=== PATIENT | female | born 1985 | race Hispanic/Latino ===

== ENCOUNTER 2017-09-10 14:21 | Emergency (ER) | payer OTHER ==
[2017-09-10 14:43] VITALS: TEMP 98.1; O2SAT 100
--- NOTE | 2017-09-10 15:12 | ED PDOC ---
HPI: Chest Pain Time Seen by Provider: 09/10/17 15:10 Chief Complaint (Nursing): Chest Pain Chief Complaint (Provider): CP History Per: Patient (32 Y/O FEMALE HERE WITH CHEST PAIN NOTED [employer] WITH BURNING SENSATION IN LEFT SHOULDER TODAY. DERIK HAS H/O ANXIETY BUT HAS BEEN WITHOUT MEDICATIONS X 3 YEARS. HAS TAKEN XANAX LAST SUNDAY WITH IMPROVEMENT OF SYMPTOMS.) Past Medical History Reviewed: Historical Data, Nursing Documentation, Vital Signs Vital Signs: Last Vital Signs Temp 98.1 F 09/10/17 14:39 Pulse 89 09/10/17 14:39 Resp 20 09/10/17 14:39 BP 142/85 09/10/17 14:39 Pulse Ox 100 09/10/17 17:44 - Family History Family History: States: No Known Family Hx - Allergies Allergies/Adverse Reactions: Allergies Allergy/AdvReac Type Severity Reaction Status Date / Time No Known Allergies Allergy Verified 09/10/17 14:39 Review of Systems ROS Statement: Except As Marked, All Systems Reviewed And Found Negative Physical Exam - Reviewed Nursing Documentation Reviewed: Yes Vital Signs Reviewed: Yes - Physical Exam Appears: Positive for: Well, Non-toxic, No Acute Distress Head Exam: Positive for: ATRAUMATIC, NORMAL INSPECTION, NORMOCEPHALIC Skin: Positive for: Normal Color, Warm, DRY Eye Exam: Positive for: EOMI, Normal appearance, PERRL ENT: Positive for: Normal ENT Inspection Neck: Positive for: Normal, Painless ROM Cardiovascular/Chest: Positive for: Regular Rate, Rhythm Respiratory: Positive for: CNT, Normal Breath Sounds Gastrointestinal/Abdominal: Positive for: Normal Exam, Soft Back: Positive for: Normal Inspection Extremity: Positive for: Normal ROM Neurologic/Psych: Positive for: Alert, Oriented - Laboratory Results Result Diagrams: 09/10/17 15:39 09/10/17 17:52 Urine POC: Negative - ECG ECG Rhythm: Positive for: Sinus Rhythm (NO ECTOPY NO ACUTE CHNAGES) O2 Sat by Pulse Oximetry: 100 - Progress ED Course And Treament: cxr: nad Disposition - Clinical Impression Clinical Impression: Chest pain - Patient ED Disposition Is Patient to be Admitted: No - Disposition Referrals: Carly Arreguin MD [Primary Care Provider] - Disposition: Routine/Home Disposition Time: 19:01 Condition: FAIR Instructions: Chest Pain
[2017-09-10 15:42] LABS: BASO % 0.5 % (0.0-2.0); EOS # 0.2 K/uL (0.0-0.7); EOS % 2.2 % (0.0-4.0); HEMOGLOBIN 13.8 g/dL (12.0-16.0); LYMPH # 2.6 K/uL (1.0-4.3); LYMPH % 31.9 % (20.0-40.0); MEAN CELL VOLUME 97.5 fl (81.0-99.0); MEAN CORPUSCULAR HEMOGLOBIN 33.2 pg (27.0-31.0); MEAN CORPUSCULAR HGB CONC 34.1 g/dL (33.0-37.0); MEAN PLATELET VOLUME 8.6 fl (7.2-11.7); MONO # 0.9 K/uL (0.0-0.8); NEUT # 4.4 K/uL (1.8-7.0); NEUT % 54.4 % (50.0-75.0); NRBC % 0.1 % (0.0-0.0); RBC 4.15 Mil/uL (3.80-5.20); RED CELL DISTRIBUTION WIDTH 12.5 % (11.5-14.5)
[2017-09-10 16:01] LABS: CALCIUM 9.1 mg/dL (8.4-10.2); GFR AFRICAN-AMERICAN > 60; GFR NON-AFRICAN AMERICAN > 60
[2017-09-10 16:04] LABS: BLOOD UREA NITROGEN 9 mg/dl (7-17)
--- NOTE | 2017-09-10 16:26 | RAD ---
Date of service: 09/10/2017 HISTORY: Chest pain. COMPARISON: No prior. TECHNIQUE: Chest PA and lateral FINDINGS: LUNGS: No active pulmonary disease. PLEURA: No significant pleural effusion identified. No pneumothorax apparent. CARDIOVASCULAR: Normal. OSSEOUS STRUCTURES: No significant abnormalities. VISUALIZED UPPER ABDOMEN: Normal. OTHER FINDINGS: None. IMPRESSION: No active disease.
[2017-09-10 19:24] VITALS: BP 135/80; PULSE 82; RESP 18
--- NOTE | 2017-09-11 09:32 | CARD ---
APPROVED REPORT Date of service: 09/10/2017 EKG Measurement Heart [id number] <Conclusion> Normal sinus rhythm with sinus arrhythmia Possible Left atrial enlargement Rightward axis Borderline ECG
== END 2017-09-10 19:23 | disposition home or self-care (01) ==
LOC: H.ER 14:21 → SUPCPDRO 14:21 → H.ER 19:23
DX: R07.9 Chest pain, unspecified (principal); F41.9 Anxiety disorder, unspecified